=== PATIENT | female | born 1955 | race Caucasian/White ===

== ENCOUNTER 2024-06-03 14:53 | Outpatient (AMB) | payer OTHER, SELFPAY ==
--- NOTE | 2024-06-03 15:08 | A.OFFPC_ITS ---
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 Patient has concern for right shoulder pain x2 months. 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 Examiner Required: No Accompanied by: Self / Same As Patient Allergies No Known Allergies Allergy (Verified 06/03/24 15:17) Medication List - Last Reconciled 06/03/24 by Maritza Huddleston MD acyclovir 200 mg PO DAILY alendronate 70 mg PO QWEEK ascorbic acid (vitamin C) mg PO aspirin 81 mg PO DAILY atorvastatin 20 mg PO DAILY Ca-D3-mag ii-rwwf-fln-america-bor 600 mg calcium- 20 mcg-50 mg (Calcium 600-D3 Plus (mag-zinc)) tabs PO duloxetine 60 mg PO BID famotidine 20 mg PO DAILY hydrochlorothiazide 25 mg PO DAILY pregabalin 100 mg PO BID Tobacco use date assessed: 06/03/24 Fall risk assessment: No Falls in past year Last assessed Fall Risk: 06/03/24 Dental Screening Dental Screen Date: 06/03/24 Did you have a dental visit in the last 12 months?: No Did you have a dental problem in the last 6 months where you did not have access to dental care?: No Was dental information given to patient?: Patient has dentist HPI HPI Comments History of Present Illness Details 68 year old female with a past medical h istory of htn, hld, aortic stenosis, depression, fibromyalgia, osteoporosis presenting to establish care. Last CPE 08/2023 with Avani Juarez [employer] CV: On HCTZ, atorvastatin, aspirin Depression: On cymbalta. Right shoulder pain for the past two months. Using otc, stretching but has not been resolving Osteoporosis-on fosamax ROS CONSTITUTIONAL: Denies weight loss, fever and chills. HEENT: Denies changes in vision and hearing. RESPIRATORY: Denies SOB and cough. CV: Denies palpitations and CP GI: Denies abdominal pain, nausea, vomiting and diarrhea. : Denies dysuria and urinary frequency. MSK: See HPI SKIN: Denies rash and pruritus. NEUROLOGICAL: Denies headache PSYCHIATRIC: Denies recent changes in mood. PHYSICAL EXAM: GENERAL: Alert and oriented x 3. NAD EYES: EOMI. Anicteric. HENT: Moist mucous membranes. No scleral icterus. No cervical lymphadenopathy. LUNGS: Clear to auscultation bilaterally. CARDIOVASCULAR: Regular rate and rhythm. No murmur. No JVD. ABDOMEN: Soft, non-tender +bs EXTREMITIES: No edema. Non-tender. SKIN: No rashes or lesions. Warm. NEUROLOGIC: No focal neurological deficits. CN II-XII grossly intact PSYCHIATRIC: Cooperative. Appropriate mood and affect [facility] Surgical History (Updated 06/03/24 @ 15:28 by Sierra Castro [facility]) History of discectomy History of back surgery S/P tonsillectomy Social History (Updated 06/03/24 @ 15:32 by Sierra Castro [facility]) Housing: House 75 years or older and lives alone: No Alcohol intake: never Patient Tobacco Use Status: Former Tobacco user Tobacco use type: Cigarette Years Smoked: 40 e-Cigarette/Vaping Use: Never Used Substance Use Type: Marijuana service: No Current occupational status: retired Cognitive needs: Yes Hearing needs: Yes Vision needs: Yes Questionnaire PHQ-9 Over the last 2 weeks, how often have you been bothered by any of the following problems? 1. Little interest or pleasure in doing things: not at all 2. Feeling down, depressed, or hopeless: several days 3. Trouble falling or staying asleep, or sleeping too much: not at all 4. Feeling tired or having little energy: several days 5. Poor appetite or overeating: not at all 6. Feeling bad about yourself - or that you are a failure or have let yourself or your family down: not at all 7. Trouble concentrating on things, such as reading the newspaper or watching television: several days 8. Moving or speaking so slowly that other people could have noticed. Or the opposite - being so fidgety or restless that you have been moving around a lot more than usual: not at all 9. Thoughts that you would be better off or of hurting yourself in some way: not at all Total score: 3 Depression Screening Interpretation: Negative (neg) Depression Screening Done: Yes 44386 - PHQ-9 Billing: Yes Source: Developed by Drs. Yobany Hinton, Nakia Ribeiro, Davi Sneed and colleagues, with an educational priscila from [employer]. Thrive Questionnaire Date Thrive assessed: 06/03/24 I am a: Patient What is your living situation today?: I have a steady place to live Within the past 12 months, did the food you bought not last and you didn't have the money to get more?: Never true Within the past 12 months, did you worry whether your food would run out before you got money to buy more?: Never true Do you have trouble paying for medicines?: No Do you have trouble getting transportation to medical appointments?: No Do you have trouble paying your heating and electricity bill?: No Do you have trouble taking care of your child, family member or friend?: No Do you have trouble with day-to-day activities such as bathing, preparing meals, shopping, managing finances, etc.?: No Are you currently unemployed and looking for a job?: No Are you interested in more education?: No Please select the resources that you would like help with: None Currently or been in a relationship where the following occur: No concerns reported THRIVE Score: 0 AUDIT C Alcohol Use Questionnaire (AUDIT-C) 1. How often do you have a drink containing alcohol?: 2-3 times a week 2. How many drinks containing alcohol do you have on a typical day when you are drinking?: 1 or 2 3. How often do you have six or more drinks on one occasion?: Never Total Score: 3 DAMARIS-7 AMB Questionnaire DAMARIS-7 Date DAMARIS - 7 assessed: 06/03/24 Feeling nervous, anxious, or on edge: 0 = Not at all Not being able to stop or control worryin = Not at all Worrying too much about different things: 1 = Several days Trouble relaxin = Not at all Being so restless that it is hard to sit still: 0 = Not at all Feeling afraid as if something awful might happen: 0 = Not at all Source: Developed by Nakia Ledbetter, Davi Sneed and colleagues, with an educational priscila from [employer]. DAMARIS-7 Assessment Billing DAMARIS-7 Assessment Tool: DAMARIS-7 Assessment 79866 Physical exam (Primary Care) Vital Signs: Last Vital Signs Pulse 77 09/10/24 15:10 Resp 11 L 06/03/24 15:10 BP 129/68 06/03/24 15:10 Pulse Ox 96 06/03/24 15:10 Oxygen Delivery Method Room Air 06/03/24 15:10 BMI result Body Mass Index 24.9 Tobacco/Smoking Status: Tobacco use Status Tobacco use date assessed 06/03/24 06/03/24 15:32 Patient Tobacco Use Status Former Tobacco user 06/03/24 15:32 Tobacco use type Cigarette 06/03/24 15:32 e-Cigarette/Vaping Use Never Used 06/03/24 15:32 PHQ-9: PHQ-9 Score PHQ-9: Total score 3 06/03/24 15:40 Depression Screening Interpretation: Negative (neg) Thrive Assessment: Date of Thrive Assessment Date Thrive assessed 06/03/24 06/03/24 15:34 Currently or been in a relationship where the following occur: No concerns reported Assessment and Plan Assessment & Plan (1) Hypertension: Code(s): I10 - Essential (primary) hypertension Qualifiers: Hypertension type: primary hypertension Qualified Code(s): I10 - Essential (primary) hypertension Plan: Blood pressure controlled Low salt diet. Continue current medications (2) Osteoporosis: Code(s): M81.0 - Age-related osteoporosis without current pathological fracture Qualifiers: Osteoporosis type: age-related Presence of current pathological fracture: without current pathological fracture Qualified Code(s): M81.0 - Age- related osteoporosis without current pathological fracture Plan: continue fosamax (3) Screening for colon cancer: Code(s): Z12.11 - Encounter for screening for malignant neoplasm of colon Plan: referral to GI (4) Shoulder pain, right: Code(s): M25.511 - Pain in right shoulder Qualifiers: Chronicity: acute Qualified Code(s): M25.511 - Pain in right shoulder Plan: referral to [facility] Orders: Orders Complete Blood Count Auto Diff 06/03/24 E78.5 - Hyperlipidemia, unspecified, I10 - Essential (primary) hypertension, Z13.0 - Encounter for screening for diseases of the blood and blood-forming organs and certain disorders involving the immune mechanism Comprehensive Met. Panel 06/03/24 E78.5 - Hyperlipidemia, unspecified, I10 - Essential (primary) hypertension, Z13.0 - Encounter for screening for diseases of the blood and blood-forming organs and certain disorders involving the immune mechanism Lipid Panel 06/03/24 E78.5 - Hyperlipidemia, unspecified, I10 - Essential (primary) hypertension, Z13.0 - Encounter for screening for diseases of the blood and blood-forming organs and certain disorders involving the immune mechanism Referrals Orthopedics Referral E78.5 - Hyperlipidemia, unspecified, I10 - Essential (primary) hypertension, M25.511 - Pain in right shoulder, Z13.0 - Encounter for screening for diseases of the blood and blood-forming organs and certain disorders involving the immune mechanism Gastroenterology Referral Z12.11 - Encounter for screening for malignant neoplasm of colon Coding Level of Care Code Est Pt Level 4 (86358) Complex EM visit Add On G2211 Diagnoses Primary hypertension I10 Hypertension type: primary hypertension Age-related osteoporosis without current pathological fracture M81.0 Osteoporosis type: age-related Presence of current pathological fracture: without current pathological fracture Screening for colon cancer Z12.11 Acute pain of right shoulder M25.511 Chronicity: acute Additional Codes DAMARIS-7 Assessment Billing - DAMARIS-7 Assessment Tool: DAMARIS-7 Assessment [id number] ([id number])
[2024-06-03 15:10] VITALS: BP 129/68; PULSE 77; RESP 11; O2SAT 96; BMI 24.9
== END 2024-06-03 16:53 | disposition home or self-care (01) ==
PROVIDERS: PCP Internal Medicine; Visit Provider Internal Medicine
DX: I10 Essential (primary) hypertension (principal); M81.0 Age-related osteoporosis without current pathological fracture; M25.511 Pain in right shoulder; Z12.11 Encounter for screening for malignant neoplasm of colon
CPT/HCPCS: 99214; G2211

== ENCOUNTER 2024-06-03 16:00 | Outpatient (REF) | payer OTHER, SELFPAY ==
[2024-06-03 17:32] LABS: MANUAL DIFF FLAG NO
[2024-06-03 18:04] LABS: Basophils Absolute Auto 0.1 X10*3/uL (0.0-0.2); Basophils Percent Auto 0.9 % (0-2); Eosinophils Absolute Auto 0.4 X10*3/uL (0.0-0.4); Eosinophils Percent Auto 5.4 % (0-4); Hematocrit 36.4 % (37.0-47.0); Hemoglobin 11.6 g/dl (12.0-16.0); Imm Gran Abs Auto 0.02 X10*3/uL (0.00-0.03); Imm Gran Pct Auto 0.3 % (0.0-0.4); Lymphocytes Percent Auto 26.1 % (20-40); Mean Corpuscular HGB Conc 31.9 g/dl (31.0-35.0); Mean Corpuscular Hemoglobin 28.7 pg (27.0-33.0); Mean Corpuscular Volume 90.1 fL (80.0-98.0); Mean Platelet Volume 13.3 fL (9.4-12.3); Monocytes Absolute Auto 0.7 X10*3/uL (0.1-1.2); Monocytes Percent Auto 8.9 % (2-11); Neutrophils Absolute Auto 4.5 x10*3/uL (2.0-8.3); Neutrophils Percent Auto 58.4 % (45-73); Platelet Count 251 X10*3/uL (160-400); Red Blood Count 4.04 X10*6/uL (4.20-5.50); Red Cell Distribution Width 13.7 % (11.0-16.0); White Blood Count 7.7 X10*3/uL (4.8-10.8)
[2024-06-03 18:49] LABS: Alanine Aminotransferase 13 U/L (0-31); Albumin Level 4.1 g/dL (3.5-5.0); Alkaline Phosphatase 73 U/L (39-117); Anion Gap 11 (12-20); Aspartate Amino Transferase 18 U/L (5-31); Bilirubin Total 0.3 mg/dL (0.0-1.0); Blood Urea Nitrogen 17 mg/dL (9-16); Calcium 10.1 mg/dL (8.4-10.2); Carbon Dioxide 31 mmol/L (22-29); Chloride 102 mmol/L (96-108); Cholesterol 145 mg/dL (<200); Estimated Glomerular Filt Rate > 60; Glucose Random 88 mg/dL (60-115); HDL Cholesterol 55 mg/dL (>40); LDL Cholesterol Calculated 75 mg/dL (<100); Potassium 3.9 mmol/L (3.3-5.1); Sodium 140 mmol/L (135-145); Total Protein 7.3 g/dL (6.5-8.0); Triglycerides 78 mg/dL (<150)
== END 2024-06-03 16:01 | disposition home or self-care (01) ==
LOC: HO.WFDLDS 16:00
PROVIDERS: Visit Provider Internal Medicine
DX: I10 Essential (primary) hypertension (principal); E78.5 Hyperlipidemia, unspecified; Z13.0 Encounter for screening for diseases of the blood and blood-forming organs and certain disorders involving the immune mechanism
CPT/HCPCS: 36415; 80053; 80061; 85025

== ENCOUNTER 2024-07-11 09:37 | Outpatient (AMB) | payer OTHER, SELFPAY ==
--- NOTE | 2024-07-11 09:38 | MHC.OFFVIS ---
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 Patient reports this started in March with no known injury. Pt states the pain has subsided within the past month but states she does still have days where she has pain when she lifts her arm up and has noticed her shoulder will get swollen occasionally. Pt denies any previous surgeries and doesn't believe she has had any injections in her shoulder previously. 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 She denies any injury however she believes her pain started on her neck after using a shiatsu massage. She states she has occasional swelling and pain in her shoulder with lifting. Her pain is aggravated with laying on her shoulder. She has not had any surgeries or injections in the past. [facility] Surgical History (Updated 06/03/24 @ 15:28 by Sierra Castro CMA) History of discectomy History of back surgery S/P tonsillectomy Social History (Updated 06/03/24 @ 15:32 by Sierra Castro CMA) Housing: House 75 years or older and lives alone: No Alcohol intake: never Patient Tobacco Use Status: Former Tobacco user Tobacco use type: Cigarette Years Smoked: 40 e-Cigarette/Vaping Use: Never Used Substance Use Type: Marijuana service: No Current occupational status: retired Cognitive needs: Yes Hearing needs: Yes Vision needs: Yes Review of Systems Const All systems reviewed & are unremarkable except as noted in HPI and below Physical Exam Const General: cooperative, healthy appearing, comfortable, no acute distress, well developed and alert Orientation/consciousness: patient oriented x3 HEENT Head: Yes normal to inspection, Yes normocephalic and Yes atraumatic Eyes General: appearance normal, both eyes and all related structures Resp Effort & Inspection: normal respiratory effort and able to speak in complete sentences Cardio Rate: regular rate Peripheral pulses: Peripheral pulses 2+ throughout GI Palpation (GI): Soft to palpation Skin Lesions: no lesions Rashes: no rashes Neuro General: patient oriented x3 Extrem Other: Right shoulder: Normal to inspection. Tenderness over the bicipital groove and along the deltoid region of the shoulder. Forward flexion to 175, external rotation to 90, internal rotation to S1. 5/5 RTC strength. Positive cross body abduction. NVI. Office Procedures Joint Injection/Aspiration Joint Injection/Aspiration Primary Site: right shoulder Prep: site was prepped using aseptic technique, ethochloride spray was applied and injection warnings given Injected: 80 mg of, DepoMedrol, with 8 mL of, 1% plain lidocaine and in the subcromial space Approach Used: posterolateral Procedure: The patient tolerated the procedure well and there was some relief with the local anesthesia Coding 37881 - Glenohumeral/Tronchanteric Bursa/Intraarticular Procedure code (CPT) selection complete Results Reviewed Results Reviewed: Xrays were obtained in the office today and personally reviewed by me of the right shoulder show mild ac joint oa Assessment & Plan Assessment & Plan (1) Right shoulder tendinitis: Code(s): M77.8 - Other enthesopathies, not elsewhere classified Category: Medical Plan We discussed options today, which include steroid injection. The patient did consent to move forward with the right shoulder injection, which was tolerated well. I recommended rest, ice, and elevation and OTC anti-inflammatories as needed for discomfort. She was also sent for a course of physical therapy in the office today. If symptoms persist or worsen over the next 6-8 weeks, patient will contact the office, otherwise follow-up as needed. Orders: Orders XR shoulder RT min 2V Today M25.511 - Pain in right shoulder Patient Instructions: Scribed for Noa Franco PA-C, by Tomas Melendrez medical imaging technologist, on 07/11/2024 at 9:30 AM EST.? I, Noa Franco PA-C, have personally reviewed and agree with the information entered by the scribe. Coding Level of Care Code New Pt Level 3 (36930) Complex EM visit Add On G2211 Diagnoses Right shoulder tendinitis M77.8 CPT Codes Coding - Joint 7: 08142 - Glenohumeral/Tronchanteric Bursa/Intraarticular ([id number])
== END 2024-07-11 10:10 | disposition home or self-care (01) ==
PROVIDERS: PCP Internal Medicine; Visit Provider Physician Assistant
DX: M75.21 Bicipital tendinitis, right shoulder (principal); M77.8 Other enthesopathies, not elsewhere classified
CPT/HCPCS: 20610; 99203

== ENCOUNTER 2024-07-11 16:07 | Outpatient (REF) | payer OTHER, SELFPAY ==
--- NOTE | ~2024-07-11 | XR_ITS ---
EXAMINATION: XR SHOULDER RIGHT 3 VIEWS CLINICAL INFORMATION: Pain in right shoulder M25.511. COMPARISON: None available TECHNIQUE: Three views of the right shoulder. FINDINGS: Osteopenia. Mild acromioclavicular arthritis. Glenohumeral joint space is maintained. No evidence of acute fracture or dislocation. Greater tuberosity cyst/edema, appearing degenerative. No abnormal soft tissue calcification. No suspicious lung findings.. XR/XR shoulder RT min 2V IMPRESSION: Degenerative changes as above. Osteopenia. No radiographic evidence of acute fracture. Study is assigned for dictation on September 03, 2024 Electronically signed by: Jonathan Ordonez MD 09/03/2024 02:45 PM BAMBI RP
== END 2024-07-11 16:08 | disposition home or self-care (01) ==
LOC: HO.HOSX 16:07
PROVIDERS: Visit Provider Physician Assistant
DX: M25.511 Pain in right shoulder (principal); M77.8 Other enthesopathies, not elsewhere classified
CPT/HCPCS: 20610; 73030; 99202; J1010; J2003

== ENCOUNTER 2025-03-03 13:57 | Outpatient (AMB) | payer MEDICARE, SELFPAY ==
--- NOTE | 2025-03-03 13:59 | A.OFFPC_ITS ---
Vital Signs 03/03/25 14:07 Height 5 ft 3.5 in Weight 138 lb 3 oz BMI 24.1 BP 124/78 Blood Pressure Location Rt brachial Position Sitting Pulse 94 Pulse Source Pulse Oximeter Temp 98.6 F Temp Source Temporal Artery Scan Pulse Oximetry (%) 95 Oxygen Delivery Method Room Air Intake Visit Reasons: Requesting medication Intake Note: Stephania presents in the office today requesting medication Allergies trazodone Allergy (Verified 03/03/25 14:03) Vomiting Tobacco use date assessed: 03/03/25 Dental Screening Dental Screen Date: 03/03/25 Did you have a dental visit in the last 12 months?: No Did you have a dental problem in the last 6 months where you did not have access to dental care?: No Was dental information given to patient?: Patient has dentist HPI HPI Comments History of Present Illness Details 68 year old female with a past medical h istory of htn, hld, aortic stenosis, depression, fibromyalgia, osteoporosis presenting for follow up CV: On HCTZ, atorvastatin, aspirin. Needs refills of medication. Blood pressure is well controlled. No shortness of breath, no CP Depression: Stopped cymbalta. Doing well off the medication except for intermittent episodes of anxiety, overworry MSK: Saw orthopedics at [facility]. Received injection. Now having left hip paresthesias. History of low back pain. She is also having increased bilateral knee pain Has fungal infection of the toes. They are thickened and grow into the skin Osteoporosis-on fosamax ROS see hpi PHYSICAL EXAM: GENERAL: Alert and oriented x 3. NAD EYES: EOMI. Anicteric. HENT: Moist mucous membranes. No scleral icterus. No cervical lymphadenopathy. LUNGS: Clear to auscultation bilaterally. CARDIOVASCULAR: Regular rate and rhythm. No murmur. No JVD. ABDOMEN: Soft, non-tender +bs EXTREMITIES: No edema. Non-tender. SKIN: No rashes or lesions. Warm. NEUROLOGIC: No focal neurological deficits. CN II-XII grossly intact PSYCHIATRIC: Cooperative. Appropriate mood and affect [facility] Surgical History History of discectomy History of back surgery S/P tonsillectomy Social History Housing: House 75 years or older and lives alone: No Alcohol intake: never Patient Tobacco Use Status: Former Tobacco user Tobacco use type: Cigarette Years Smoked: 40 e-Cigarette/Vaping Use: Never Used Substance Use Type: Marijuana service: No Current occupational status: retired Cognitive needs: Yes Hearing needs: Yes Vision needs: Yes Questionnaire PHQ-9 Over the last 2 weeks, how often have you been bothered by any of the following problems? 1. Little interest or pleasure in doing things: several days 2. Feeling down, depressed, or hopeless: not at all 3. Trouble falling or staying asleep, or sleeping too much: several days 4. Feeling tired or having little energy: several days 5. Poor appetite or overeating: not at all 6. Feeling bad about yourself - or that you are a failure or have let yourself or your family down: not at all 7. Trouble concentrating on things, such as reading the newspaper or watching television: several days 8. Moving or speaking so slowly that other people could have noticed. Or the opposite - being so fidgety or restless that you have been moving around a lot more than usual: not at all 9. Thoughts that you would be better off or of hurting yourself in some way: not at all Total score: 4 Depression Screening Interpretation: Negative Depression Screening Done: Yes 59363 - PHQ-9 Billing: Yes Source: Developed by Drs. Yobany Hinton, Nakia Ribeiro, Davi Sneed and colleagues, with an educational priscila from [employer]. Thrive Questionnaire Date Thrive assessed: 03/03/25 I am a: Patient What is your living situation today?: I have a steady place to live Within the past 12 months, did the food you bought not last and you didn't have the money to get more?: Never true Within the past 12 months, did you worry whether your food would run out before you got money to buy more?: Never true Do you have trouble paying for medicines?: No Do you have trouble getting transportation to medical appointments?: No Do you have trouble paying your heating and electricity bill?: No Do you have trouble taking care of your child, family member or friend?: No Do you have trouble with day-to-day activities such as bathing, preparing meals, shopping, managing finances, etc.?: No Are you currently unemployed and looking for a job?: No Are you interested in more education?: No Please select the resources that you would like help with: None Currently or been in a relationship where the following occur: No concerns reported THRIVE Score: 0 AUDIT C Alcohol Use Questionnaire (AUDIT-C) 1. How often do you have a drink containing alcohol?: 2-3 times a week 2. How many drinks containing alcohol do you have on a typical day when you are drinking?: 3 or 4 3. How often do you have six or more drinks on one occasion?: Never Total Score: 4 Score Reviewed/Action Taken: No DAMARIS-7 AMB Questionnaire DAMARIS-7 Date DAMARIS - 7 assessed: 03/03/25 Feeling nervous, anxious, or on edge: 0 = Not at all Not being able to stop or control worryin = Not at all Worrying too much about different things: 0 = Not at all Trouble relaxin = Several days Being so restless that it is hard to sit still: 0 = Not at all Becoming easily annoyed or irritable: 0 = Not at all Feeling afraid as if something awful might happen: 0 = Not at all Total DAMARIS-7 score (0-4 normal; 5-9 mild; 10-14 moderate; 15-21 severe): 1 Source: Developed by Drs. Yobany Hinton, Nakia Ribeiro, Davi Sneed and colleagues, with an educational priscila from [employer]. DAMARIS-7 Assessment Billing DAMARIS-7 Assessment Tool: DAMARIS-7 Assessment 44874 Physical exam (Primary Care) Vital Signs: Last Vital Signs Temp 98.6 F 03/03/25 14:07 Pulse 94 03/03/25 14:07 BP 124/78 03/03/25 14:07 Pulse Ox 95 03/03/25 14:07 Oxygen Delivery Method Room Air 03/03/25 14:07 BMI result Body Mass Index 24.1 Tobacco/Smoking Status: Tobacco use Status Tobacco use date assessed 03/03/25 03/03/25 14:09 Patient Tobacco Use Status Former Tobacco user 03/03/25 14:01 Tobacco use type Cigarette 03/03/25 14:01 e-Cigarette/Vaping Use Never Used 03/03/25 14:01 PHQ-9: PHQ-9 Score PHQ-9: Total score 4 03/03/25 14:09 Depression Screening Interpretation: Negative Thrive Assessment: Date of Thrive Assessment Date Thrive assessed 03/03/25 03/03/25 14:09 Currently or been in a relationship where the following occur: No concerns reported Coding Level of Care Code Est Pt Level 4 (03314) Diagnoses Chronic pain of both knees M25.561; M25.562; G89.29 Chronicity: chronic Onychomycosis B35.1 Chronic bilateral low back pain with left-sided sciatica G89.29; M54.42 Back pain laterality: bilateral Chronicity: chronic Sciatica laterality: sciatica of left side Sciatica presence: with sciatica Primary hypertension I10 Hypertension type: primary hypertension Hyperlipidemia, unspecified hyperlipidemia type E78.5 Hyperlipidemia type: unspecified Additional Codes DAMARIS-7 Assessment Billing - DAMARIS-7 Assessment Tool: DAMARIS-7 Assessment 28297 ([id number]) PHQ-9 - 50818 - PHQ-9 Billing: Yes ([id number]) Assessment & Plan Assessment & Plan (1) Bilateral knee pain: Code(s): M25.561 - Pain in right knee; M25.562 - Pain in left knee Category: Medical Qualifiers: Chronicity: chronic Qualified Code(s): M25.561 - Pain in right knee; M25.562 - Pain in left knee; G89.29 - Other chronic pain (2) Onychomycosis: Code(s): B35.1 - Tinea unguium Category: Medical (3) Low back pain: Code(s): M54.50 - Low back pain, unspecified Category: Medical Qualifiers: Back pain laterality: bilateral Chronicity: chronic Sciatica laterality: sciatica of left side Sciatica presence: with sciatica Qualified Code(s): G89.29 - Other chronic pain; M54.42 - Lumbago with sciatica, left side (4) Hypertension: Code(s): I10 - Essential (primary) hypertension Category: Medical Qualifiers: Hypertension type: primary hypertension Qualified Code(s): I10 - Essential (primary) hypertension (5) Hyperlipidemia: Code(s): E78.5 - Hyperlipidemia, unspecified Category: Medical Qualifiers: Hyperlipidemia type: unspecified Qualified Code(s): E78.5 - Hyperlipidemia, unspecified Plan HTN-well controlled on current medications HLD-stable on statin therapy Left lateral hip/flank paresthesias, h/o low back pain. xray lumbar spine Toe nail fungus-referral to podiatry. Orders: Orders XR lumbar spine 2-3V Today M54.10 - Radiculopathy, site unspecified, M54.50 - Low back pain, unspecified XR Knee Ezra 3V Today M25.561 - Pain in right knee, M25.562 - Pain in left knee Referrals Podiatry Referral B35.1 - Tinea unguium Medications: New atorvastatin 20 mg PO DAILY 90 tabs 3RF hydrochlorothiazide 25 mg PO DAILY 90 tabs 3RF omeprazole 20 mg PO DAILY 90 caps 3RF alendronate 70 mg PO QWEEK 12 tabs 3RF lorazepam 1 mg PO DAILY PRN 30 tabs 1RF anxiety
[2025-03-03 14:07] VITALS: BP 124/78; PULSE 94; TEMP 37; O2SAT 95; BMI 24.1
--- OUTSIDE RECORDS SUMMARY | 2025-03-03 16:40 | XMS_ITS | Clinical Summary ---
Author Organization [employer] Address [address] [facility] 7 [place] [address] Care Team Providers Care Integrated Marketing Intern Name Role Phone Unavailable Primary Care Provider Unavailabl e Social History Tobacco Use Types Packs/Day Years Used Date Smoking Tobacco: Never Assessed Comments Unknown Sex and Gender Information Value Date Recorded Sex Assigned at Not on file Legal Sex Female 5:34 PM EDT Gender Identity Not on file Sexual Orientation Not on file Plan of Treatment Health Maintenance Due Date Last Done Comments CT Colonography 1956 Colonoscopy 1956 Colorectal Cancer Screening 1956 Depression Screening 1956 FIT DNA/Cologuard 1956 FIT 1956 FOBT 1956 Sigmoidoscopy 1956 Alcohol/Substance Use Screening 1968 Tobacco Screening 1968 Mammogram 1996 Pneumococcal Vaccine: 50+ Years (1 of 1 - PCV) 2006 Zoster Vaccines (1 of 2) 2006 COVID-19 Vaccine (3 - season) 2024 01/05/2021, 12/15/2020 Influenza Vaccine (Season Ended) 2025 07/07/2022, 05/30/2020, 06/27/2019, Additional history exists DTaP/Tdap/Td Vaccines (2 - Td or Tdap) 09/25/2028 09/25/2018 RSV Patients and Patients Aged 60 years or older (1 - 1-dose 75+ series) 2031 HIB Vaccines Aged Out No longer eligi ble based on patient's age to complete this topic HPV Vaccines Aged Out No longer eligi ble based on patient's age to complete this topic Hepatitis A Vaccines Aged Out No long er eligible based on patient's age to complete this topic Hepatitis B Vaccines Aged Out No long er eligible based on patient's age to complete this topic IPV Vaccines Aged Out No longer eligi ble based on patient's age to complete this topic Meningococcal B Vaccine Aged Out No l onger eligible based on patient's age to complete this topic Meningococcal Vaccine Aged Out No [place] eligible based on patient's age to complete this topic RSV under 20 months Aged Out No longe r eligible based on patient's age to complete this topic Rotavirus Vaccines Aged Out No longer eligible based on patient's age to complete this topic
== END 2025-03-03 14:32 | disposition home or self-care (01) ==
LOC: HO.HMCFM 13:58
PROVIDERS: PCP Internal Medicine; Visit Provider Internal Medicine
DX: M25.561 Pain in right knee (principal); M25.562 Pain in left knee; G89.29 Other chronic pain; B35.1 Tinea unguium; M54.42 Lumbago with sciatica, left side; I10 Essential (primary) hypertension; E78.5 Hyperlipidemia, unspecified

== ENCOUNTER → 2025-03-03 13:57 | Outpatient (BNVA) | payer MEDICARE, SELFPAY | PROVIDERS: PCP Internal Medicine; Visit Provider Internal Medicine | DX: Z13.31 Encounter for screening for depression (principal); M25.561 Pain in right knee; M25.562 Pain in left knee; G89.29 Other chronic pain; B35.1 Tinea unguium; M54.42 Lumbago with sciatica, left side; I10 Essential (primary) hypertension; E78.5 Hyperlipidemia, unspecified | CPT/HCPCS: 96127; 99212 ==

== ENCOUNTER 2025-03-06 09:59 | Outpatient (REF) | payer MEDICARE, SELFPAY ==
--- NOTE | ~2025-03-06 | XR_ITS ---
CLINICAL HISTORY: M54.10 - Radiculopathy, site unspecified 3 views lumbar spine Comparison: None Findings: Moderate height loss of the L4 compression fractures age indeterminate by radiographs. 1.1 cm retrolisthesis of the thoracolumbar junction. Mild thoracic vertebral height losses also age indeterminate in the sgymd-zy-onau. Grade 1 anterolisthesis at L4-L5. Facet arthropathy is multifocal most pronounced in the lower lumbar spine. Degenerative disc changes are multifocal with endplate changes and endplate hypertrophy including L3-L4 and L5-S1. Least mild spinal stenosis with foraminal narrowing by CT. Rightward curvature of the imaged spine is noted. Degenerative changes include the partially imaged SI joints of the partially imaged hips. Majority of the sacrum is obscured. Vascular calcifications are noted. IMPRESSION: 1. Age indeterminate height loss of the L4 compression fracture. Please consider MRI, if clinically indicated and if clinically able. 2. Degenerative changes include facet arthropathy by radiographs. 3. Lower lumbar foraminal narrowing by radiographs. This document has been electronically signed by: John Olsno MD on 03/07/2025 21:45:38
--- NOTE | ~2025-03-06 | XR_ITS ---
CLINICAL HISTORY: bilateral knee pain 3 view bilateral knee Comparison: None Findings: Moderate to severe tricompartment osteoarthritis of both knees. Joint space narrowing appears most pronounced in the patellofemoral compartments. Mild articular surface irregularities including right femoral condyle is nonspecific and may reflect small osteochondral lesions by radiographs. Lateral positioning of the right patella and left patella as can be seen with patellofemoral tracking syndrome. Qkepx-bc-vgvecmzm bilateral effusions present. Vascular and capsular calcifications are bilateral. IMPRESSION: 1. Awzgqknm-nj-zghsjw osteoarthritis of both knees. 2. Bilateral effusions present. This document has been electronically signed by: John Olson MD on 03/07/2025 21:42:48
== END 2025-03-06 10:00 | disposition home or self-care (01) ==
LOC: HO.XRAY 09:59
PROVIDERS: PCP Internal Medicine; Visit Provider Internal Medicine
DX: M25.561 Pain in right knee (principal); M25.562 Pain in left knee; M25.462 Effusion, left knee; M25.461 Effusion, right knee; M54.10 Radiculopathy, site unspecified; M54.50 Low back pain, unspecified
CPT/HCPCS: 72100; 73562

== ENCOUNTER → 2025-03-06 10:08 | Outpatient (BNV) | payer MEDICARE, SELFPAY | PROVIDERS: PCP Internal Medicine; Visit Provider Radiology Neuroradiology | DX: M43.16 Spondylolisthesis, lumbar region (principal); M17.0 Bilateral primary osteoarthritis of knee | CPT/HCPCS: 72100; 73562 ==

== ENCOUNTER 2025-03-09 17:39 | Outpatient (REF) | payer MEDICARE, SELFPAY ==
[2025-03-09 17:51] LABS: Appearance Urine Turbid; Color Urine Dark Yellow; Glucose Urine UA Negative (Negative); Leukocyte Esterase Urine Large (3+) (Negative); Nitrite Urine Positive (Negative); PH 5.5 (5.0-9.0); Specific Gravity - Urine 1.025 (1.005-1.025); UMIC TRIGGER UA YES; Urine Blood Moderate (2+) (Negative); Urine Ketones Trace mg/dL (Negative); Urine Protein 100 (2+) mg/dL (Neg-Trace)
[2025-03-09 18:09] LABS: Bacteria Urine 4+ (None Seen); Hyaline Casts Urine >20 /LPF (0-2); RBC Urine >20 /HPF (0-2); WBC Urine >50 /HPF (0-5)
--- OUTSIDE RECORDS SUMMARY | 2025-03-09 18:15 | XMS_ITS | Clinical Summary ---
Author Organization [employer] Address [address] [facility] 7 [place] [address] Care Team Providers Care Carpenter Assembler Name Role Phone Unavailable Primary Care Provider [...]
== END 2025-03-09 17:40 | disposition home or self-care (01) ==
LOC: HO.LNP 17:39
PROVIDERS: Visit Provider Internal Medicine
DX: R30.0 Dysuria (principal)
CPT/HCPCS: 81001

== ENCOUNTER → 2025-04-03 08:49 | Outpatient (BNV) | payer MEDICARE, SELFPAY | PROVIDERS: PCP Internal Medicine; Visit Provider Radiology Diagnostic Radiology | DX: M43.16 Spondylolisthesis, lumbar region (principal) | CPT/HCPCS: 72148 ==

== ENCOUNTER 2025-04-03 08:58 | Outpatient (REF) | payer MEDICARE, SELFPAY ==
--- NOTE | ~2025-04-03 | MR_ITS ---
EXAMINATION: MR LUMBAR SPINE WITHOUT CONTRAST CLINICAL INFORMATION: Wedge compression fracture, L4. COMPARISON: Correlated to x-ray dated March 06, 2025. TECHNIQUE: MRI of the lumbar spine was obtained using routine sequences without contrast. FINDINGS: Incomplete examination due to claustrophobia. Last rib-bearing vertebra labeled T12. There is 50% volume loss and superior endplate compression deformity without bone marrow STIR signal at L4. There is bone marrow STIR signal at the anterior endplates of T10-11 and T12-L1 with associated marginal osteophyte formation and disc desiccation. Modic type I endplate changes at T10-11 and T12-L1. Multilevel marginal osteophyte formation and disc desiccation from T10-11 to L4-5. Grade 1 anterolisthesis L4-5 and L2-3 levels. Grade 1 retrolisthesis T12-L1 and L1-2. Dextroconvex curvature apex at L1-2. The conus medullaris ends at superior endplate of L1 with normal signal. Bilateral neuroforamina stenosis at L2-3 compressing the L2 exiting nerve roots, left greater than the right side. Bilateral neuroforamina narrowing at L3-4 and L4-5 on a degenerative basis and likely encroaching the exiting nerve roots. Inadequate evaluation of the thecal sac central spinal canal. Left neuroforamina and stenosis at L1 to and likely encroaching the exiting nerve root. MR/MR lumbar spine wo con IMPRESSION: Old compression fracture deformity representing 50% volume loss at L4. Acute inflammatory processes hepatic the anterior endplates of T10-11 and T12-L1. Multilevel spondylosis no fully evaluated resulting in bilateral neuroforamina stenosis at L2-3 compressing the exiting nerve roots and bilateral neuroforamina narrowing at L3-4 and L4-5 encroaching the exiting nerve roots. Grade 1 anterolisthesis L4-5 and L2-3 and grade 1 retrolisthesis T12-L1 and L1-2 on a degenerative basis. Electronically signed by: Fei Grewal MD 04/03/2025 09:42 AM EDT
--- OUTSIDE RECORDS SUMMARY | 2025-04-03 09:12 | XMS_ITS | Clinical Summary ---
Author Organization [employer] Address [address] [facility] 7 [place] [address] Care Team Providers Care Quality Assurance Supervisor Chassis Name Role Phone Unavailable Primary Care Provider [...] - season) 2024 01/05/2021, 12/15/2020 Influenza Vaccine (#1) 2025 , 05/30/2020, 06/27/2019, Additional history exists DTaP/Tdap/Td Vaccines [...]
== END 2025-04-03 08:59 | disposition home or self-care (01) ==
LOC: HO.MRI 08:58
PROVIDERS: PCP Internal Medicine; Visit Provider Internal Medicine
DX: S32.000A Wedge compression fracture of unspecified lumbar vertebra, initial encounter for closed fracture (principal)
CPT/HCPCS: 72148

== ENCOUNTER 2025-04-07 12:57 | Outpatient (AMB) | payer MEDICARE, SELFPAY ==
--- NOTE | 2025-04-07 12:59 | AM.OFFWIN_ITS ---
Intake Vital Signs 04/07/25 13:07 Height 5 ft 3.5 in Weight 135 lb BMI 23.5 BP 102/67 Blood Pressure Location Rt brachial Position Sitting Respiration 12 Pulse 95 Pulse Source Pulse Oximeter Temp 97.1 F Temp Source Oral Pulse Oximetry (%) 98 Oxygen Delivery Method Room Air Intake Visit Reasons: depression issues Intake Note: Patient c/o feeling down, crying constantly, not able to sleep and not having the energy to do anything. Patient also was on depression meds in the past but felt she could deal with depression herself . Mike went to do MRI last Sunday and was unable to do with because of this issue. Patient denies to have any suicidal thoughts, Patient Tobacco Use Status: Former Tobacco user Dry Folder Cloth Required: No Allergies trazodone Allergy (Verified 04/07/25 13:17) Vomiting Medication List - Last Reconciled 04/07/25 by Donna Dent, COMPUTER LAB AIDE- acyclovir 200 mg PO DAILY alendronate 70 mg PO QWEEK ascorbic acid (vitamin C) mg PO aspirin 81 mg PO DAILY atorvastatin 20 mg PO DAILY Ca-D3-mag gv-nwre-bre-america-bor 600 mg calcium- 20 mcg-50 mg (Calcium 600-D3 Plus (mag-zinc)) tabs PO hydrochlorothiazide 25 mg PO DAILY lorazepam 1 mg PO DAILY PRN nitrofurantoin monohyd/m-cryst 100 mg (Macrobid) 100 mg PO BID omeprazole 20 mg PO DAILY tramadol 50 mg PO Q8H PRN 7 days Do you need a note to return to daycare/school/sports/work: No HPI HPI Comments History of Present Illness Details History of Present Illness - The patient is a 69-year-old female pr esenting with worsening symptoms of depression. - Reports persistent low mood, increased crying episodes, and insomnia. - History of duloxetine and pregabalin u se for depression and pain, self- discontinued. - Unable to complete MRI due to heighten ed anxiety, undermining previously stable depression status. - denies suicidal or homicidal ideation; hypothetically indicates receptiveness to counseling. - Recently utilized lorazepam for anxiet y symptoms. - Patient reports feeling down, crying constantly, and lacking energy. The patient has a history of depression and is not currently on any medications for depression. She reports depressive symptoms affecting daily life and has expressed feelings of wanting to hurt herself and others. She is not currently active with a counselor but is considering it. Review of Systems - Psychiatric: Reports depression, cryin g, anxiety, and insomnia. Denies suicidal or homicidal ideation. Physical Exam General: Well developed, well nourished, in no acute distress. Appears stated age. Head: Normocephalic, atraumatic. Eyes: Pupils are equal, round and reactive to light and accommodation. Lungs: Speaking in full sentences Psych: Mood and affect appropriate, Denies SI/HI. Contracts for safety. Discussion Notes I discussed with the patient her current state of depression, the rationale for restarting duloxetine, and the benefits and potential side effects of the medication. We talked about following a titration plan beginning with 20 mg once daily for a week, then increasing to twice daily for optimal management of symptoms. I empathized with her struggles in managing her depressive symptoms without medication and explained the importance of gradual dose escalation to avoid adverse effects. We reviewed the option of resuming counseling, mainta ining it open for her decision when ready. I provided information on crisis hotline use if symptoms acutely worsen. I scheduled a follow-up in four weeks to assess her response to medication adjustments. I addressed concerns regarding alternative medications like Ambien, highlighting the associated risks, and offered advice on sleep hygiene and alternative medications for insomnia management. The patient consented to this plan of action and was agreeable to the outlined steps for managing her symptoms. Assessment and Plan 1. Major Depressive Disorder - Start duloxetine 20 mg once daily, gra dually increase to 20 mg twice daily. - Monitor in four weeks for dosage adjus tment. - Open counseling referral for patient's discretion. 2. Insomnia - Avoid Ambien due to risk; recommend sl eep hygiene practices. Rx for unisom sent 3. Anxiety - Suggest lorazepam PRN only, provide cr gasper resources. Patient Instructions - Take duloxetine as prescribed: start w ith 20 mg once daily for a week, then increase to twice daily. - Follow-up in four weeks or if symptoms worsen. - Maintain good sleep habits and avoid u atrium healthy sleep aids. - Use provided crisis line if feeling ov erwhelmed. - Consider counseling to support depress ion management. Consent Patient was informed and verbally consented to the use of an ambient scribe for clinic note documentation during this visit. Total time spent caring for the patient today was 30 minutes. This includes time spent before the visit reviewing the chart, time spent during the visit, and time spent after the visit on documentation, reviewing laboratory results, diagnostic imaging, medications, performing a medically necessary evaluation, counseling on diagnoses, care coordination, ordering appropriate tests, ordering appropriate medications, review of tests performed by other providers, reporting test results with the patient, communication with other healthcare providers. [facility] Surgical History History of discectomy History of back surgery S/P tonsillectomy Social History Housing: House 75 years or older and lives alone: No Alcohol intake: never Patient Tobacco Use Status: Former Tobacco user Tobacco use type: Cigarette Years Smoked: 40 e-Cigarette/Vaping Use: Never Used Substance Use Type: Marijuana service: No Current occupational status: retired Cognitive needs: Yes Hearing needs: Yes Vision needs: Yes Physical Exam Vital Signs: Last Vital Signs Temp 97.1 F 04/07/25 13:07 Pulse 95 04/07/25 13:07 Resp 12 04/07/25 13:07 BP 102/67 04/07/25 13:07 Pulse Ox 98 04/07/25 13:07 Oxygen Delivery Method Room Air 04/07/25 13:07 BMI result Body Mass Index 23.5 Assessment & Plan Assessment & Plan (1) MDD (major depressive disorder), recurrent episode: Code(s): F33.9 - Major depressive disorder, recurrent, unspecified Qualifiers: Major depression episode severity: severe Psychotic features: without psychotic features Qualified Code(s): F33.2 - Major depressive disorder, recurrent severe without psychotic features (2) DAMARIS (generalized anxiety disorder): Code(s): F41.1 - Generalized anxiety disorder Plan . Orders: Referrals Nurse Navigator Referral F33.2 - Major depressive disorder, recurrent severe without psychotic features, F41.1 - Generalized anxiety disorder Medications: New duloxetine TAKE ONCE PER DAY X 1 WEEK THEN INCREASE TO 1 TAB BID 20 mg PO DIRECTED 60 caps 1RF doxylamine succinate (Unisom (doxylamine)) 25 mg PO BEDTIME PRN 30 tabs 0RF sleep Patient Instructions: Patient Instructions - Take duloxetine as prescribed: start with 20 mg once daily for a week, then increase to twice daily. - Follow-up in four weeks or if symptoms worsen. - Maintain good sleep habits and avoid unhealthy sleep aids. - Use provided crisis line if feeling overwhelmed. - Consider counseling to support depression management. National Suicide and Crisis Lifeline: Available 24 hours a day, 7 days a week, 365 days a year Dial 988 with any telephone to speak to someone immediately [address] [address] , Walk [facility] (Mental / Behavioral health therapist: [address] [place] [address] Formerly [facility] ([facility]) at [facility]: [address] [place], [place] [id number] Open from 10am - 12pm (walk [facility]) [facility] Crisis Services: [address] [place] [address] Walk in hours from 10am - 12pm Behavioral health Network: [address] [place] [address] [place] [phone] Sunday through Sunday 8am - 8pm Sunday and Sunday 9am - 5pm Crisis Hotlines Suicide prevention, domestic violence, and other crisis hotlines for youth, young adults, and their friends and families. [place] Runaway Safeline: The National Runaway Safeline helps youth who have run away, are thinking about running away, or who already ran away but are ready to come home. Parents and guardians can also contact the hotline if they are worried about their child running away or if their child has already left home. The hotline is available 24 hours a day, seven days a week. Youth, parents, and guardians can also use the online chat feature on the Runaway Safeline's website to ask for help and get support, [place] [address]. National Runaway Safeline National Suicide Prevention Lifeline: The National Suicide Prevention Lifeline is a network of local crisis centers that are available 16/04 to provide support for youth and adults who are in any kind of emotional crisis. In addition to the main hotline number listed above, there are several other numbers to call depending on your needs: Upper Sorbian Language: Deaf and Hard of Hearin1-893.123.3288 Veterans: Disaster Distress: Anyone can also use their online chat feature on their website. National Suicide Prevention Lifeline [facility] Helpline: The [facility] Helpline is available to anyone in [place] who is need of emotional support. Anyone can call or text the helpline to receive help from specially trained volunteers. [place] high school and college students can also get online support through the IMHear_ program. For high school students, volunteers ages 15-18 are available Sunday- from 6-9PM. For college students, IMHear_ is available Sunday-Sunday from 5-9PM. The Chad Project - The Chad Project is a 16/04 crisis intervention and suicide prevention hotline for LGBTQ youth. Youth can also text Chad to for support, or use the online chat feature on the Chad Project's website. [employer] is available Sunday-Sunday between 3-10PM. TrevorChat is available seven days a week between 3-10PM. SafeLink: SafeLink is for anyone who is being affected by domestic violence or dating violence. Volunteers at [employer] speak Yi and Upper Sorbian, and [employer] also has a service that can provide translation in more than 130 languages. TTY: Coding Level of Care Code Est Pt Level 4 (94556) Diagnoses Severe episode of recurrent major depressive disorder, without psychotic features F33.2 Major depression episode severity: severe Psychotic features: without psychotic features DAMARIS (generalized anxiety disorder) F41.1
[2025-04-07 13:07] VITALS: BP 102/67; PULSE 95; RESP 12; TEMP 36.2; O2SAT 98; BMI 23.5
--- OUTSIDE RECORDS SUMMARY | 2025-04-07 14:11 | XMS_ITS | Clinical Summary ---
Author Organization [employer] Address [address] [facility] 7 [place] [address] Care Team Providers Care Department Mgr Name Role Phone Unavailable Primary Care Provider [...]
== END 2025-04-07 13:32 | disposition home or self-care (01) ==
LOC: HO.HMCFM 12:58
PROVIDERS: PCP Internal Medicine; Visit Provider Nurse Practitioner Family
DX: F33.2 Major depressive disorder, recurrent severe without psychotic features (principal); F41.1 Generalized anxiety disorder

== ENCOUNTER → 2025-04-07 12:57 | Outpatient (BNVA) | payer MEDICARE, SELFPAY | PROVIDERS: PCP Internal Medicine; Visit Provider Nurse Practitioner Family | DX: F33.2 Major depressive disorder, recurrent severe without psychotic features (principal); F41.1 Generalized anxiety disorder; G47.00 Insomnia, unspecified | CPT/HCPCS: 99212 ==

== ENCOUNTER 2025-05-13 08:30 | Outpatient (AMB) | payer MEDICARE, SELFPAY ==
--- NOTE | 2025-05-13 08:41 | MHC.OFFVIS ---
Vital Signs 05/13/25 08:42 Height 5 ft 3.5 in Weight 135 lb BMI 23.5 Intake Visit Reasons: New prob-B/L knee pain Intake Note: Stephania is a 69 year old female who presents today as an established patient, new problem visit to evaluate bilateral knee pain. Patient seen by PCP, who ordered x-rays and referred to orthopedics. Patient reports knee pain for the past 6 months with the left knee being the worse. Her pain is located mostly at the lateral aspect of both knees and at times wraps around her whole knee. No numbness or tingling. Denies injury. Finds mild relief Advil and Tylenol. Allergies trazodone Allergy (Verified 05/13/25 08:44) Vomiting Medication List - Last Reconciled 05/13/25 by Noa Franco PA-C acyclovir 200 mg PO DAILY alendronate 70 mg PO QWEEK ascorbic acid (vitamin C) mg PO aspirin 81 mg PO DAILY atorvastatin 20 mg PO DAILY Ca-D3-mag ez-tzng-dec-america-bor 600 mg calcium- 20 mcg-50 mg (Calcium 600-D3 Plus (mag-zinc)) tabs PO doxylamine succinate (Unisom (doxylamine)) 25 mg PO BEDTIME PRN duloxetine 20 mg PO BID hydrochlorothiazide 25 mg PO DAILY ibuprofen 800 mg PO Q8H PRN 30 days lorazepam 1 mg PO DAILY PRN omeprazole 20 mg PO DAILY tramadol 50 mg PO Q8H PRN 7 days HPI HPI New prob-B/L knee pain: Details: 69 yo female presents to the office today for bilat knee pain, L>R. She states the pain will come on suddenly, she will have cramps in the knee. She denies significant pain with stairs or prolonged walking. Her main concern is the catching or cramp with sitting . [facility] Surgical History History of discectomy History of back surgery S/P tonsillectomy Social History Housing: House 75 years or older and lives alone: No Alcohol intake: never Patient Tobacco Use Status: Former Tobacco user Tobacco use type: Cigarette Years Smoked: 40 e-Cigarette/Vaping Use: Never Used Substance Use Type: Marijuana service: No Current occupational status: retired Cognitive needs: Yes Hearing needs: Yes Vision needs: Yes Review of Systems Const All systems reviewed & are unremarkable except as noted in HPI and below Physical Exam Vital Signs: BMI result Body Mass Index 23.5 Const General: cooperative and no acute distress Orientation/consciousness: patient oriented x3 Resp Effort & Inspection: normal respiratory effort and able to speak in complete sentences Cardio Peripheral pulses: Peripheral pulses 2+ throughout Neuro General: patient oriented x3 Extrem Other: Bilateral knees are normal to inspection. She has mild tenderness over the lateral side of the patella with full range of motion. No ligamentous laxity. Calf supple and nontender neurovascularly intact. Results Reviewed Results Reviewed: X-rays of both knees obtained in the office today and reviewed by me show mild to moderate osteoarthritis Assessment & Plan Assessment & Plan (1) Osteoarthritis of patellofemoral joints, bilateral: Code(s): M17.0 - Bilateral primary osteoarthritis of knee Category: Medical Plan: We discussed options today which includes physical therapy to work on strengthening conditioning exercises. I did place an order and she will reach out to them to make an appointment. She was also fit for a knee brace to help with stability. A prescription for ibuprofen was sent to the pharmacy which she will take 3 times a day for 2 weeks. If symptoms persist or worsen she can contact me for a steroid injection otherwise follow up as needed. Orders: Orders PT Evaluation and Treatment Today M17.0 - Bilateral primary osteoarthritis of knee XR knee standing BI Today M25.561 - Pain in right knee, M25.562 - Pain in left knee Medications: New ibuprofen 800 mg PO Q8H PRN 90 tabs 3RF pain 30 days Coding Level of Care Code Est Pt Level 3 (77701) Complex EM visit Add On G2211 Diagnoses Osteoarthritis of patellofemoral joints, bilateral M17.0
[2025-05-13 08:42] VITALS: BMI 23.5
--- OUTSIDE RECORDS SUMMARY | 2025-05-13 09:12 | XMS_ITS | Clinical Summary ---
Author Organization [employer] Address [address] [place] [address] 7 [place] [address] Care Team Providers Care Tariff Publishing Agent Name Role Phone Unavailable Primary Care Provider [...] Screening 1968 Tobacco Screening 1968 Mammogram 1996 Zoster Vaccines (1 of 2) 2006 COVID-19 Vaccine ( season) 2024 07/27/2023, 10/18/2021, 01/05/2021, Additional history exists Influenza Vaccine (#1) 2025 , 07/07/2022, 05/30/2020, Additional history exists DTaP/Tdap/Td Vaccines (2 - Td or Tdap) 09/25/2028 09/25/2018 RSV Patients and Patients Aged 60 years or older (1 - 1-dose 75+ series) 2031 Pneumococcal Vaccine: 50+ Years Completed 07/07/2022 HIB Vaccines Aged Out No longer eligi [...]
== END 2025-05-13 09:59 | disposition home or self-care (01) ==
LOC: HO.HOS 08:31
PROVIDERS: PCP Internal Medicine; Visit Provider Physician Assistant
DX: M17.0 Bilateral primary osteoarthritis of knee (principal)
CPT/HCPCS: 99213; G2211

== ENCOUNTER 2025-05-13 08:33 | Outpatient (REF) | payer MEDICARE, SELFPAY ==
--- NOTE | ~2025-05-13 | XR_ITS ---
EXAMINATION: XR KNEE AP STANDING CLINICAL INFORMATION: M25.561 - Pain in right knee COMPARISON: 03/06/2025. TECHNIQUE: AP bilateral standing view of the knees was obtained. FINDINGS: No fracture, dislocation, or suspicious bone lesion. Mild to moderate medial and lateral compartment joint space narrowing bilaterally. Bilateral spurring of the tibial spines. No soft tissue abnormalities. XR/XR knee standing BI IMPRESSION: Mild to moderate bicompartmental osteoarthrosis bilateral knees. Electronically signed by: Errol Gillespie MD 05/13/2025 08:45 AM EDT
--- OUTSIDE RECORDS SUMMARY | 2025-05-14 09:27 | XMS_ITS | Clinical Summary ---
Author Organization [employer] Address [address] [place] [address] [address] [place] [address] Care Team Providers Care Veterinary Practitioner Name Role Phone Unavailable Primary Care Provider [...]
== END 2025-05-13 08:34 | disposition home or self-care (01) ==
LOC: HO.HOSX 08:33
PROVIDERS: Visit Provider Physician Assistant
DX: M17.0 Bilateral primary osteoarthritis of knee (principal); M25.561 Pain in right knee; M25.562 Pain in left knee
CPT/HCPCS: 73565; 99212

== ENCOUNTER → 2025-05-13 08:36 | Outpatient (BNV) | payer MEDICARE, SELFPAY | PROVIDERS: Visit Provider Radiology Diagnostic Radiology | DX: M17.0 Bilateral primary osteoarthritis of knee (principal) | CPT/HCPCS: 73565 ==

== ENCOUNTER 2025-06-02 15:49 | Outpatient (AMB) | payer MEDICARE, SELFPAY ==
--- NOTE | 2025-06-02 15:57 | MHC.PC.OV ---
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 Needs refills of medication. Blood pressure is well controlled. No shortness of breath, no CP Depression: Restarted cymbalta. Interested in dose increase MSK: Saw orthopedics at [facility] [place]. Received injection. Now having left hip paresthesias. History of low back pain, surgery. bilateral knee pain Osteoporosis-on fosamax Mammogram order placed Referral to GI for colonoscopy ROS see hpi PHYSICAL EXAM: GENERAL: Alert and oriented x 3. NAD EYES: EOMI. Anicteric. HENT: Moist mucous membranes. No scleral icterus. No cervical lymphadenopathy. LUNGS: Clear to auscultation bilaterally. CARDIOVASCULAR: Regular rate and rhythm. No murmur. No JVD. ABDOMEN: Soft, non-tender +bs EXTREMITIES: No edema. Non-tender. SKIN: No rashes or lesions. Warm. NEUROLOGIC: No focal neurological deficits. CN II-XII grossly intact PSYCHIATRIC: Cooperative. Appropriate mood and affect [facility] Surgical History History of discectomy History of back surgery S/P tonsillectomy Social History Housing: House 75 years or older and lives alone: No Alcohol intake: never Patient Tobacco Use Status: Former Tobacco user Tobacco use type: Cigarette Years Smoked: 40 e-Cigarette/Vaping Use: Never Used Use of substances other than those prescribed or required for medical reasons: Yes Substance Use Type: Marijuana service: No Current occupational status: retired Cognitive needs: Yes Hearing needs: Yes Vision needs: Yes Questionnaire Thrive Questionnaire Date Thrive assessed: 03/03/25 I am a: Patient What is your living situation today?: I have a steady place to live Within the past 12 months, did the food you bought not last and you didn't have the money to get more?: Never true Within the past 12 months, did you worry whether your food would run out before you got money to buy more?: Never true Do you have trouble paying for medicines?: No Do you have trouble getting transportation to medical appointments?: No Do you have trouble paying your heating and electricity bill?: No Do you have trouble taking care of your child, family member or friend?: No Do you have trouble with day-to-day activities such as bathing, preparing meals, shopping, managing finances, etc.?: No Are you currently unemployed and looking for a job?: No Are you interested in more education?: No Please select the resources that you would like help with: None Currently or been in a relationship where the following occur: No concerns reported THRIVE Score: 0 AUDIT C Alcohol Use Questionnaire (AUDIT-C) 1. How often do you have a drink containing alcohol?: 2-3 times a week 2. How many drinks containing alcohol do you have on a typical day when you are drinking?: 1 or 2 3. How often do you have six or more drinks on one occasion?: Never Total Score: 3 DAMARIS-7 AMB Questionnaire DAMARIS-7 Date DAMARIS - 7 assessed: 03/03/25 Source: Developed by Drs. Yobany Hinton, Nakia Ribeiro, Davi Sneed and colleagues, with an educational priscila from [employer]. Physical exam (Primary Care) Vital Signs: Last Vital Signs Pulse 80 06/02/25 15:59 Resp 16 06/02/25 15:59 BP 126/76 06/02/25 15:59 Pulse Ox 97 06/02/25 15:59 Oxygen Delivery Method Room Air 06/02/25 15:59 BMI result Body Mass Index 24.1 Tobacco/Smoking Status: Tobacco use Status Tobacco use date assessed 06/02/25 06/02/25 15:59 Patient Tobacco Use Status Former Tobacco user 06/02/25 16:03 Tobacco use type Cigarette 06/02/25 16:03 e-Cigarette/Vaping Use Never Used 06/02/25 16:03 Thrive Assessment: Date of Thrive Assessment Date Thrive assessed 03/03/25 06/02/25 15:59 Currently or been in a relationship where the following occur: No concerns reported Coding Level of Care Code Est Pt Level 4 (95960) Diagnoses Severe episode of recurrent major depressive disorder, without psychotic features F33.2 Major depression episode severity: severe Psychotic features: without psychotic features Primary hypertension I10 Hypertension type: primary hypertension Hyperlipidemia, unspecified hyperlipidemia type E78.5 Hyperlipidemia type: unspecified Assessment & Plan Assessment & Plan (1) MDD (major depressive disorder), recurrent episode: Code(s): F33.9 - Major depressive disorder, recurrent, unspecified Category: Medical Qualifiers: Major depression episode severity: severe Psychotic features: without psychotic features Qualified Code(s): F33.2 - Major depressive disorder, recurrent severe without psychotic features (2) Hypertension: Code(s): I10 - Essential (primary) hypertension Category: Medical Qualifiers: Hypertension type: primary hypertension Qualified Code(s): I10 - Essential (primary) hypertension (3) Hyperlipidemia: Code(s): E78.5 - Hyperlipidemia, unspecified Category: Medical Qualifiers: Hyperlipidemia type: unspecified Qualified Code(s): E78.5 - Hyperlipidemia, unspecified Plan 69 year old for follow up MDD/anxiety-improved after restarting duloxetine. Increase dose HTN-well controlled on current medications Orders: Orders PT Evaluation and Treatment 05/13/25 M17.0 - Bilateral primary osteoarthritis of knee, M25.552 - Pain in left hip PT Evaluation and Treatment 07/11/24 M77.8 - Other enthesopathies, not elsewhere classified MM tomosynthesis screening BI 06/02/25 Z12.31 - Encounter for screening mammogram for malignant neoplasm of breast Referrals Gastroenterology Referral Z12.11 - Encounter for screening for malignant neoplasm of colon Medications: New duloxetine 60 mg PO DAILY 90 caps 3RF Discontinued duloxetine Discontinued Reason: Doctor's Order 20 mg PO BID 180 caps 1RF
[2025-06-02 15:59] VITALS: BP 126/76; PULSE 80; RESP 16; O2SAT 97; BMI 24.1
--- OUTSIDE RECORDS SUMMARY | 2025-06-02 18:01 | XMS_ITS | Encounter Summary ---
Author Organization [employer] Address [address] [place] [address] [address] [place] [address] Care Team Providers Care Reaming Machine Tender Name Role Phone Unavailable Primary Care Provider Unavailabl e Encounter Details Date Type Department Care Team (Latest Contact Info) Description 04/03/2019 Abstract [facility] CONVERSIONS Dental, Provider, DDS Social History Tobacco Use Types Packs/Day Years Used Date Smoking Tobacco: Never Assessed Comments Unknown Sex and Gender Information Value Date Recorded Sex Assigned at Not on file Legal Sex Female 5:34 PM EDT Gender Identity Not on file Sexual Orientation Not on file documented as of this encounter Plan of Treatment Not on file documented as of this encounter Visit Diagnoses Not on filedocumented in this encounter
--- OUTSIDE RECORDS SUMMARY | 2025-06-02 18:01 | XMS_ITS | Clinical Summary ---
Author Organization [employer] Address [address] [place] [address] [address] [place] [address] Care Team Providers Care Supervisor Meter Repair Shop Name Role Phone Unavailable Primary Care Provider [...] of 2) 2006 COVID-19 Vaccine ( season) 2025 07/27/2023, 10/18/2021, 01/05/2021, Additional history exists Influenza [...]
== END 2025-06-02 16:18 | disposition home or self-care (01) ==
LOC: HO.HMCFM 15:50
PROVIDERS: PCP Internal Medicine; Visit Provider Internal Medicine
DX: F33.2 Major depressive disorder, recurrent severe without psychotic features (principal); I10 Essential (primary) hypertension; E78.5 Hyperlipidemia, unspecified

== ENCOUNTER → 2025-06-02 15:49 | Outpatient (BNVA) | payer MEDICARE, SELFPAY | PROVIDERS: PCP Internal Medicine; Visit Provider Internal Medicine | DX: F33.2 Major depressive disorder, recurrent severe without psychotic features (principal); I10 Essential (primary) hypertension; E78.5 Hyperlipidemia, unspecified; M81.0 Age-related osteoporosis without current pathological fracture; Z79.82 Long term (current) use of aspirin; Z79.899 Other long term (current) drug therapy | CPT/HCPCS: 99212 ==

== ENCOUNTER 2025-06-16 09:37 | Outpatient (AMB) | payer MEDICARE, SELFPAY ==
--- NOTE | 2025-06-16 09:40 | A.OFFPC_ITS ---
Vital Signs 06/16/25 09:41 Height 5 ft 3.5 in Weight 135 lb 8 oz BMI 23.6 BP 104/76 Blood Pressure Location Rt brachial Position Sitting Respiration 14 Pulse 92 Pulse Source Pulse Oximeter Temp 98.8 F Temp Source Oral Pulse Oximetry (%) 96 Oxygen Delivery Method Room Air Intake Visit Reasons: Swollen LT arm /pain Intake Note: Left arm pain and swelling, fell tripping over a hose. Allergies trazodone Allergy (Verified 06/16/25 09:42) Vomiting Tobacco use date assessed: 06/16/25 Fall risk assessment: 1 Fall in past year Last assessed Fall Risk: 06/16/25 Dental Screening Dental Screen Date: 03/03/25 HPI HPI Comments History of Present Illness Details 69 year old female with a past medical h istory of htn, hld, aortic stenosis, depression, fibromyalgia, osteoporosis presenting for acute visit Patient was gardening yesterday and when she went to [facility] the hose didnt realize it was wrapped around her right foot. This caused her to fall quickly landing on her left arm, shoulder & elbow. She is unable to lift at the shoulder, unable to extend at the elbow and has considerable left arm, elbow and hand swelling. She has some tramadol which she has taken at home for some pain relief CV: On HCTZ, atorvastatin, aspirin. Needs refills of medication. Blood pressure is well controlled. No shortness of breath, no CP Depression: Restarted cymbalta. Interested in dose increase MSK: Saw orthopedics at [facility] [place]. Received injection. Now having left hip paresthesias. History of low back pain, surgery. bilateral knee pain Osteoporosis-on fosamax Mammogram order placed Referral to GI for colonoscopy ROS see hpi PHYSICAL EXAM: GENERAL: Alert and oriented x 3. NAD EYES: EOMI. Anicteric. HENT: Moist mucous membranes. No scleral icterus. No cervical lymphadenopathy. LUNGS: Clear to auscultation bilaterally. CARDIOVASCULAR: Regular rate and rhythm. No murmur. No JVD. MSK: Left arm. Patient has extremely limited ROM at shoulder, elbow, limited rom at wrist. Tender to palpation shoulder, elbow, humerus, forearm. Significant swelling ABDOMEN: Soft, non-tender +bs EXTREMITIES: No edema. Non-tender. +radial pulse SKIN: No rashes or lesions. Warm. NEUROLOGIC: No focal neurological deficits. CN II-XII grossly intact PSYCHIATRIC: Cooperative. Appropriate mood and affect [facility] Surgical History History of discectomy History of back surgery S/P tonsillectomy Social History Housing: House 75 years or older and lives alone: No Alcohol intake: never Patient Tobacco Use Status: Former Tobacco user Tobacco use type: Cigarette Years Smoked: 40 e-Cigarette/Vaping Use: Never Used Use of substances other than those prescribed or required for medical reasons: Yes Substance Use Type: Marijuana service: No Current occupational status: retired Cognitive needs: Yes Hearing needs: Yes Vision needs: Yes Questionnaire Thrive Questionnaire Date Thrive assessed: 03/03/25 I am a: Patient What is your living situation today?: I have a steady place to live Within the past 12 months, did the food you bought not last and you didn't have the money to get more?: Never true Within the past 12 months, did you worry whether your food would run out before you got money to buy more?: Never true Do you have trouble paying for medicines?: No Do you have trouble getting transportation to medical appointments?: No Do you have trouble paying your heating and electricity bill?: No Do you have trouble taking care of your child, family member or friend?: No Do you have trouble with day-to-day activities such as bathing, preparing meals, shopping, managing finances, etc.?: No Are you currently unemployed and looking for a job?: No Are you interested in more education?: No Please select the resources that you would like help with: None Currently or been in a relationship where the following occur: No concerns reported THRIVE Score: 0 DAMARIS-7 AMB Questionnaire DAMARIS-7 Date DAMARIS - 7 assessed: 03/03/25 Source: Developed by Drs. Yobany Hinton, Nakia Ribeiro, Davi Sneed and colleagues, with an educational priscila from [employer]. Physical exam (Primary Care) Vital Signs: Last Vital Signs Temp 98.8 F 06/16/25 09:41 Pulse 92 06/16/25 09:41 Resp 14 06/16/25 09:41 BP 104/76 06/16/25 09:41 Pulse Ox 96 06/16/25 09:41 Oxygen Delivery Method Room Air 06/16/25 09:41 BMI result Body Mass Index 23.6 Tobacco/Smoking Status: Tobacco use Status Tobacco use date assessed 06/16/25 06/16/25 09:48 Patient Tobacco Use Status Former Tobacco user 06/16/25 09:48 Tobacco use type Cigarette 06/16/25 09:48 e-Cigarette/Vaping Use Never Used 06/16/25 09:48 Thrive Assessment: Date of Thrive Assessment Date Thrive assessed 03/03/25 06/16/25 09:48 Currently or been in a relationship where the following occur: No concerns reported Coding Level of Care Code Est Pt Level 4 (59077) Complex EM visit Add On G2211 Diagnoses Left arm pain M79.602 Assessment & Plan Assessment & Plan (1) Left arm pain: Code(s): M79.602 - Pain in left arm Category: Medical Plan Left arm pain Xrays ordered Needs to see ortho luly Placed in left shoulder sling Oxycodone sent Advised to ice, elevate Orders: Orders XR forearm LT 2V Today M25.422 - Effusion, left elbow, M79.602 - Pain in left arm, W19.XXXA - Unspecified fall, initial encounter XR humerus LT Today M25.422 - Effusion, left elbow, M79.602 - Pain in left arm, W19.XXXA - Unspecified fall, initial encounter XR elbow LT min 3V Today M25.422 - Effusion, left elbow, M79.602 - Pain in left arm, W19.XXXA - Unspecified fall, initial encounter XR shoulder LT min 2V Today M25.512 - Pain in left shoulder Referrals Orthopedics Referral M79.602 - Pain in left arm, W19.XXXA - Unspecified fall, initial encounter Medications: New oxycodone Partial Fill upon patient request. 5 mg PO Q6H PRN 28 tabs 0RF pain 7 days
[2025-06-16 09:41] VITALS: BP 104/76; PULSE 92; RESP 14; TEMP 37.1; O2SAT 96; BMI 23.6
--- OUTSIDE RECORDS SUMMARY | 2025-06-16 11:25 | XMS_ITS | Encounter Summary ---
Author Organization [employer] Address [address] [place] [address] [address] [place] [address] Care Team Providers Care Residential Treatment Specialist Name Role Phone Unavailable Primary Care Provider [...]
--- OUTSIDE RECORDS SUMMARY | 2025-06-16 11:25 | XMS_ITS | Clinical Summary ---
Author Organization [employer] Address [address] [place] [address] [address] [place] [address] Care Team Providers Care Epic Interface Analyst Name Role Phone Unavailable Primary Care Provider [...]
== END 2025-06-16 11:22 | disposition home or self-care (01) ==
LOC: HO.HMCFM 09:38
PROVIDERS: PCP Internal Medicine; Visit Provider Internal Medicine
DX: M79.602 Pain in left arm (principal)

== ENCOUNTER → 2025-06-16 09:37 | Outpatient (BNVA) | payer MEDICARE, SELFPAY | PROVIDERS: PCP Internal Medicine; Visit Provider Internal Medicine | DX: M79.602 Pain in left arm (principal); I10 Essential (primary) hypertension; E78.5 Hyperlipidemia, unspecified; F32.A Depression, unspecified; M81.0 Age-related osteoporosis without current pathological fracture; Z79.82 Long term (current) use of aspirin; Z79.899 Other long term (current) drug therapy | CPT/HCPCS: 99212 ==

== ENCOUNTER 2025-06-23 09:10 | Outpatient (REF) | payer MEDICARE, SELFPAY ==
--- NOTE | ~2025-06-23 | XR_ITS ---
EXAMINATION: XR HAND 3 OR MORE VIEWS LEFT HISTORY: M79.642 - Pain in left hand COMPARISON: There are no prior studies available for comparison. FINDINGS: Three views of the left hand are submitted. The bones are osteopenic. There is no fracture or dislocation. There is mild osteoarthritis of the DIP joints and the 1st carpometacarpal joint. The soft tissues are unremarkable. XR/XR hand LT min 3V IMPRESSION: Osteopenia. Degenerative changes of the left hand as described. Electronically signed by: Yobany Toussaint MD 06/23/2025 12:38 PM EDT
--- OUTSIDE RECORDS SUMMARY | 2025-06-23 09:54 | XMS_ITS | Clinical Summary ---
Author Organization [email or web address] Address [address] [place] [address] [address] [place] [address] Care Team Providers Care Casting Carrier Name Role Phone Unavailable Primary Care Provider [...]
--- OUTSIDE RECORDS SUMMARY | 2025-06-23 09:54 | XMS_ITS | Encounter Summary ---
Author Organization [employer] Address [address] [place] [address] [address] [place] [address] Care Team Providers Care Electric Accounting Machine Operator Name Role Phone Unavailable Primary Care Provider [...]
== END 2025-06-23 09:11 | disposition home or self-care (01) ==
LOC: HO.HOSX 09:10
DX: S62.347A Nondisplaced fracture of base of fifth metacarpal bone, left hand, initial encounter for closed fracture (principal); W19.XXXA Unspecified fall, initial encounter; Y93.H2 Activity, gardening and landscaping
CPT/HCPCS: 73130; 99202

== ENCOUNTER 2025-06-23 11:45 | Outpatient (AMB) | payer MEDICARE, SELFPAY ==
[2025-06-23 11:49] VITALS: BMI 23.5
--- NOTE | 2025-06-23 11:49 | MHC.OFFVIS ---
Vital Signs 06/23/25 11:49 Height 5 ft 3.5 in Weight 135 lb BMI 23.5 Intake Visit Reasons: New prob LT hand pain s/p fall 06/11/25 Intake Note: Stephania is a 69 year old right hand dominant female who presents today for a New Problem visit for evaluation of a Left Hand Injury status post fall, DOI: 06/11/25. Per referring provider patient was gardening when she went to yank the hose without realizing it was wrapped around her right foot. This caused her to fall quickly landing on her left arm, shoulder & elbow. She stated she was unable to lift at the shoulder, unable to extend at the elbow, and had considerable left arm, elbow, and hand swelling. Patient complains of pain when using her hand, primarily on the dorsal aspect of the left ring and small fingers. Denies numbness, tingling, or finger locking. She is not taking anything for the pain. She denies previosu injuries or surgeries to the left hand. Allergies trazodone Allergy (Verified 06/23/25 11:49) Vomiting HPI HPI New prob LT hand pain s/p fall 06/11/25: Details: Stephania is a 69 year old right hand dominant female who presents today for a New Problem visit for evaluation of a Left Hand Injury status post fall, DOI: 06/11/25. Per referring provider patient was gardening when she went to yank the hose without realizing it was wrapped around her right foot. This caused her to fall quickly landing on her left arm, shoulder & elbow. She stated she was unable to lift at the shoulder, unable to extend at the elbow, and had considerable left arm, elbow, and hand swelling. Patient complains of pain when using her hand, primarily on the dorsal aspect of the left ring and small fingers. Denies numbness, tingling, or finger locking. She is not taking anything for the pain. She denies previosu injuries or surgeries to the left hand. [facility] Surgical History History of discectomy History of back surgery S/P tonsillectomy Social History (Updated 06/23/25 @ 11:53 by DESIRE Luna) Housing: House 75 years or older and lives alone: No Alcohol intake: current Alcohol intake frequency: a few times a week Patient Tobacco Use Status: Former Tobacco user Tobacco use type: Cigarette Years Smoked: 40 e-Cigarette/Vaping Use: Never Used Substance Use Type: Marijuana service: No Current occupational status: retired Current occupation: left handed Cognitive needs: Yes Hearing needs: Yes Vision needs: Yes Review of Systems Const All systems reviewed & are unremarkable except as noted in HPI and below Physical Exam Vital Signs: BMI result Body Mass Index 23.5 Extrem Other: Patient is alert, oriented, and in no acute distress. Neuro: Normal sensation of the tips of all digits of the left hand at this time Vascular: Cap refill brisk Pain: Significant tenderness to palpation of the 5th metacarpal base of the left hand Mild tenderness to palpation of radial and ulnar styloid of left hand ROM: Patient is able to make a closed fist and extend all digits of the left hand fully Skin: No lacerations or abrasions. General: No ecchymosis, erythema, or evidence of infection. Psych: Appears grossly normal Affect normal Attitude cooperative Office Procedures AMB Fracture Care Fracture Billing Code: Fracture Billing Code Results Reviewed Results Reviewed: X-rays obtained in the office today and independently reviewed by me, Dexter Ponce PA-C, demonstrate nondisplaced fracture of the left 5th metacarpal base. Assessment & Plan Assessment & Plan (1) Nondisplaced fracture of base of fifth metacarpal bone, left hand, initial encounter for closed fracture: Code(s): S62.347A - Nondisplaced fracture of base of fifth metacarpal bone, left hand, initial encounter for closed fracture Category: Medical Plan 1. Nondisplaced left 5th metacarpal base fracture Date of injury 06/11/2025 Patient is educated about this condition Patient is educated about the typical recovery course Case was discussed with Dr. Xavier, and a collaborative treatment plan was formed: At this time, patient is placed into a Velcro wrist splint to be worn at all times except for bathing Patient is also advised to sima tape the left ring and small fingers together to provide extra stability and act as a moving splint for the left hand Patient may remove the splint for bathing only 1-2 lb weight limit in the left hand until follow-up Patient understands this in his amenable to this plan Follow-up in 2-3 weeks with repeat x-rays for reassessment, sooner with any acute concerns Orders: Orders XR hand LT min 3V Today M79.642 - Pain in left hand Coding Level of Care Code New Pt Level 3 (08750) Diagnoses Nondisplaced fracture of base of fifth metacarpal bone, left hand, initial encounter for closed fracture S62.347A CPT Codes Fracture Care - Fracture Billing Code: Fracture Billing Code ([id number])
== END 2025-06-23 12:53 | disposition home or self-care (01) ==
LOC: HO.HOS 11:46
PROVIDERS: PCP Internal Medicine
DX: S62.347A Nondisplaced fracture of base of fifth metacarpal bone, left hand, initial encounter for closed fracture (principal)
CPT/HCPCS: 99203

== ENCOUNTER → 2025-06-23 11:47 | Outpatient (BNV) | payer MEDICARE, SELFPAY | PROVIDERS: Visit Provider Radiology Diagnostic Radiology | DX: M18.12 Unilateral primary osteoarthritis of first carpometacarpal joint, left hand (principal) | CPT/HCPCS: 73130 ==

== ENCOUNTER 2025-07-17 12:30 | Outpatient (AMB) | payer MEDICARE, SELFPAY ==
[2025-07-17 12:58] VITALS: BMI 21.8
--- NOTE | 2025-07-17 12:58 | A.OFFVIS_ITS ---
Vital Signs 07/17/25 12:58 Height 5 ft 3.5 in Weight 125 lb BMI 21.8 Intake Visit Reasons: OV-LT hand pain s/p fall 06/11/25 Intake Note: Stephania is a 69 year old right hand dominant female who presents today for for follow up status post Left 5th Metacarpal Base Fracture , DOI: 06/11/25. At her last visit, she was placed in a Velcro wrist brace to be worn at all times. She was also advised to sima tape the left ring and small finger and to maintain a 1-2 lb weight limit until follow-up. Patient reports she is doing well. She denies any pain or discomfort. She denies numbness or tingling. Allergies trazodone Allergy (Verified 07/17/25 12:59) Vomiting HPI HPI OV-LT hand pain s/p fall 06/11/25: Details: Stephania is a 69 year old right hand dominant female who presents today for for follow up status post Left 5th Metacarpal Base Fracture , DOI: 06/11/25. At her last visit, she was placed in a Velcro wrist brace to be worn at all times. She was also advised to sima tape the left ring and small finger and to maintain a 1-2 lb weight limit until follow-up. Patient reports she is doing well. She denies any pain or discomfort. She denies numbness or tingling. Patient states that she has worn the brace approximately ?80% of the time I was supposed to? [facility] Surgical History History of discectomy History of back surgery S/P tonsillectomy Social History (Updated 06/23/25 @ 11:53 by DESIRE Luna) Housing: House 75 years or older and lives alone: No Alcohol intake: current Alcohol intake frequency: a few times a week Patient Tobacco Use Status: Former Tobacco user Tobacco use type: Cigarette Years Smoked: 40 e-Cigarette/Vaping Use: Never Used Substance Use Type: Marijuana service: No Current occupational status: retired Current occupation: left handed Cognitive needs: Yes Hearing needs: Yes Vision needs: Yes Review of Systems Const All systems reviewed & are unremarkable except as noted in HPI and below Physical Exam Vital Signs: BMI result Body Mass Index 21.8 Extrem Other: Patient is alert, oriented, and in no acute distress. Neuro: Normal sensation of the tips of all digits of the left hand at this time Vascular: Cap refill brisk Pain: No tenderness to palpation of the 5th metacarpal base of the left hand No tenderness to palpation of radial and ulnar styloid of left hand ROM: Patient is able to make a closed fist and extend all digits of the left hand fully Skin: No lacerations or abrasions. General: No ecchymosis, erythema, or evidence of infection. Psych: Appears grossly normal Affect normal Attitude cooperative Results Reviewed Results Reviewed: X-rays obtained in the office today and independently reviewed by me, Dexter Ponce PA-C, demonstrate nondisplaced fracture of the left 5th metacarpal base with evidence of interval bony healing. Assessment & Plan Assessment & Plan (1) Nondisplaced fracture of base of fifth metacarpal bone, left hand, initial encounter for closed fracture: Code(s): S62.347A - Nondisplaced fracture of base of fifth metacarpal bone, left hand, i nitial encounter for closed fracture Category: Medical Plan 1. Nondisplaced left 5th metacarpal base fracture Date of injury 06/11/2025 Patient is educated about this condition Patient is educated about the typical recovery course Case was discussed with Dr. Xavier, and a collaborative treatment plan was formed: At this time, patient should continue wear the Velcro wrist splint with daytime activities Patient is also advised to sima tape the left ring and small fingers together to provide extra stability and act as a moving splint for the left hand with daytime activities Patient may remove the splint for bathing only 2-3 lb weight limit until follow-up Patient understands this in his amenable to this plan Follow-up in 4 weeks with repeat x-rays for reassessment, sooner with any acute concerns Orders: Orders XR hand LT min 3V Today M79.642 - Pain in left hand Coding Level of Care Code Global (79919) Diagnoses Nondisplaced fracture of base of fifth metacarpal bone, left hand, initial encounter for closed fracture S62.347A
--- OUTSIDE RECORDS SUMMARY | 2025-07-17 14:31 | XMS_ITS | Encounter Summary ---
Author Organization [employer] Address [address] [place] [address] [address] [place] [address] Care Team Providers Care Bone Tender Name Role Phone Unavailable Primary Care [...]
--- OUTSIDE RECORDS SUMMARY | 2025-07-17 14:31 | XMS_ITS | Clinical Summary ---
Author Organization [employer] Address [address] [place] [address] [address] [place] [address] Care Team Providers Care Manager Staffing Name Role Phone Unavailable Primary Care Provider [...]
== END 2025-07-17 13:36 | disposition home or self-care (01) ==
LOC: HO.HOS 12:31
PROVIDERS: PCP Internal Medicine
DX: S62.347A Nondisplaced fracture of base of fifth metacarpal bone, left hand, initial encounter for closed fracture (principal)
CPT/HCPCS: 99213

== ENCOUNTER 2025-07-17 12:30 | Outpatient (REF) | payer MEDICARE, SELFPAY ==
--- NOTE | ~2025-07-17 | XR_ITS ---
EXAMINATION: XR HAND 3 OR MORE VIEWS LEFT HISTORY: M79.642 - Pain in left hand COMPARISON: Comparison is made with the prior examination dated 06/23/2025. FINDINGS: Three views of the left hand are submitted. The bones are osteopenic. Now evident are healing nondisplaced fractures of the base of the 5th metacarpal and the radial styloid. 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 The soft tissues are unremarkable. XR/XR hand LT min 3V IMPRESSION: Healing nondisplaced fractures of the base of the 5th metacarpal and the radial styloid. Electronically signed by: Yobany Toussaint MD 07/17/2025 01:28 PM EDT
== END 2025-07-17 12:31 | disposition home or self-care (01) ==
LOC: HO.HOSX 12:30
PROVIDERS: PCP Internal Medicine
DX: S62.347D Nondisplaced fracture of base of fifth metacarpal bone, left hand, subsequent encounter for fracture with routine healing (principal); X58.XXXD Exposure to other specified factors, subsequent encounter
CPT/HCPCS: 73130; 99212

== ENCOUNTER → 2025-07-17 13:17 | Outpatient (BNV) | payer MEDICARE, SELFPAY | PROVIDERS: PCP Internal Medicine; Visit Provider Radiology Diagnostic Radiology | DX: M79.642 Pain in left hand (principal) | CPT/HCPCS: 73130 ==